=== PATIENT | female | born 1965 | race African-American/Black ===

== ENCOUNTER 2018-09-04 19:13 | Emergency (ER) | payer SELFPAY ==
[2018-09-04 19:14] VITALS: BP 158/96; PULSE 100; RESP 14; TEMP 37.3; O2SAT 96; BMI 36.8
--- NOTE | 2018-09-04 19:36 | CT_ITS ---
STUDY: CT FACIAL BONES WITHOUT CONTRAST REASON FOR EXAM: Female, 53 years old. MOVING A BED AND THE POST HIT RIGHT SIDE OF CHEEK, C/O DIZZINESS RADIATION DOSAGE (If Supplied By Facility): CTDIvol = ( 29.38 ) mGy, DLP = ( 540.11 ) mGycm TECHNIQUE: The patient was scanned in a multi detector CT scanner. Sagittal and coronal images were reconstructed. Individualized dose optimization techniques were used for this CT. COMPARISON: None. FINDINGS: Soft tissues swelling and air overlying the right maxilla. No underlying fracture. Normal orbital marrero and orbital contents. Normal nasal bones and anterior nasal spine. Normal facial bones. There is no demonstrated fracture. There is mild maxillary sinus disease. CT/Sinus/Facial Bone IMPRESSION: Soft tissues swelling and air overlying the right maxilla. No underlying fracture. Electronically Signed: Bob Severino MD at 20:29 EST , Service support ,
--- NOTE | 2018-09-04 19:36 | CT_ITS ---
STUDY: CT BRAIN WITHOUT CONTRAST REASON FOR EXAM: Female, 53 years old. MOVING A BED AND THE POST HIT RIGHT SIDE OF CHEEK, C/O DIZZINESS RADIATION DOSAGE (If Supplied By Facility): CTDIvol = ( 44.99 ) mGy, DLP = ( 779.24 ) mGycm TECHNIQUE: Transaxial CT imaging of the brain was performed without administration of intravenous contrast material. Individualized dose optimization techniques were used for this CT. COMPARISON: None. FINDINGS: Normal soft tissue structures. Normal calvarium. Normal size ventricles and extra-axial spaces for the patient's age. Normal white matter tracts of the cerebral hemispheres. Normal basal ganglia and thalami. Normal brainstem. Normal cerebellum. There is no intracranial hemorrhage. There are no findings of an acute ischemic infarction. Normal visualized paranasal sinuses. CT/Brain/Head without Contrast IMPRESSION: Normal unenhanced CT scan of the brain. Electronically Signed: Bob Severino MD at 20:22 EST , Service support ,
--- NOTE | 2018-09-04 19:36 | CT_ITS ---
STUDY: CT CERVICAL SPINE WITHOUT CONTRAST REASON FOR EXAM: Female, 53 years old. MOVING A BED AND THE POST HIT RIGHT SIDE OF CHEEK, C/O DIZZINESS RADIATION DOSAGE (If Supplied By Facility): CTDIvol = ( 24.64 ) mGy, DLP = ( 509.20 ) mGycm TECHNIQUE: High resolution transaxial imaging was performed without contrast material. Sagittal and coronal images were reconstructed. Individualized dose optimization techniques were used for this CT. COMPARISON: None FINDINGS: The vertebral bodies do maintain their height. The odontoid process is intact. There is no anterolisthesis or fracture. No pre-vertebral soft tissue swelling is seen. The intravertebral disc height is lost. There are scattered lymph nodes in the neck. There are degenerative changes of the osseous structures. There is bilateral facet arthropathy. There are scattered levels of foraminal stenosis. CT/Spine Cervical without Contras IMPRESSION: Degenerative changes of the cervical spine. No acute abnormality of the spine. Electronically Signed: Bob Severino MD at 20:30 EST , Service support ,
[2018-09-04] MEDS: Acetaminophen 500 MG Tablet 1000 MG PO (19:54)
[2018-09-04 19:57] VITALS: BP 142/85
--- NOTE | 2018-09-04 20:53 | ED.VISSUMM ---
- ER Visit Summary Date of Service: 09/04/18 Chief Complaint: Head and facial injury History of Present Illness: The patient is a 53 F who was standing on the ground when a door of a [employer] was opened. A bed frame that had shifted during transport fell out of the [employer] and hit the patient in the face. She was knocked to the ground but did not strike her head against the ground. She is complaining of pain to her right forehead and right side of her face. She has no vision changes. She has no nausea or vomiting. She denies any other injury. Physical Examination: Vital signs are unremarkable. Patient sitting upright in bed holding an ice pack on her face. Head and neck examination reveals a few abrasions to the right maxilla with focal tenderness. Periorbital bones are nontender. Pupils are equal and reactive with normal extraocular movements. She does have tenderness in the right cervical paraspinal muscles. Heart is regular rate and rhythm. Lung sounds are clear. Abdomen is soft nontender. Neuro exam is normal. Test Results: CT scan of the head is normal. CT the facial bones shows soft tissue swelling and air in the right maxilla. There is no underlying fracture. CT the C-spine shows degenerative changes. No acute abnormality. Emergency Department Course and Treatment: Patient was initially given Tylenol. After obtaining CT results she was given oxycodone for pain. Test results were discussed with the patient. Patient be given Percocet for pain. Treatment Plan: [] Disposition: Discharge Impression: 1. Closed head injury 2. Right facial contusion This note was generated with Numerous dictation software. It may contain incorrect words, spelling, and punctuation that were not noted in review of the chart prior to signing ED Disposition - Plan for ED Patient: Disposition: Home or Assisted Living Chief Complaint: Head Injury Instructions: ED Contusion Face, ED Head Injury Closed Prescriptions: Oxycodone HCl/Acetaminophen [Percocet 5/325] 1 tablet PO Q6H PRN PRN 3 Days #12 tablet PRN Reason: Pain Referrals: Edith Langford MD [STAFF PHYSICIAN] - 1-2 Weeks
[2018-09-04] MEDS: oxyCODONE 5 MG Tablet 10 MG PO (21:06)
[2018-09-04 21:11] VITALS: BP 124/71; PULSE 76; RESP 14; O2SAT 98
--- OUTSIDE RECORDS SUMMARY | 2018-12-09 07:46 | XMS RPT_ITS ---
:1965 Author Organization [facility] Care Team Providers Name Role Phone Negra Magana Attending Unavailable Primay Care Physicia, No Primary Care Unavailable PROBLEMS PROBLEMS DATE TYPE CONDITION / CODE ATTENDING STATUS SOURCE 09/04/2018 Unknown S09.93XA - Negra Magana Active [place] [facility] Community injury of face, Hospital initial encounter Repository / S09.93XA(ICD-10) PROCEDURES PROCEDURES No Procedure Records FoundRESULTS RESULTS EMERGENCY DEPARTMENT Observed: 09/05/2018 Status: F Source: [place] SUMMARY 12:06 AM [facility] Medical Records Department [address] [place] [address] Emergency Department Summary 09/04/182052 MR#: [id number] Acct: [id number] Name: KAREY MONTANEZ Rep #: [id number] : 1965 53 From: Negra Magana MD PCP: Care Physician, No Primary Status: DEP ER - ER Visit Summary Date of Service: 09/04/18 Chief Complaint: Head and facial injury History of Present Illness: The patient is a 53 F who was standing on the ground when a door of a [employer] was opened. A bed frame that had shifted during transport fell out of the [employer] and hit the patient in the face. She was knocked to the ground but did not strike her head against the ground. She is complaining of pain to her right forehead and right side of her face. She has no vision changes. She has no nausea or vomiting. She denies any other injury. Physical Examination: Vital signs are unremarkable. Patient sitting upright in bed holding an ice pack on her face. Head and neck examination reveals a few abrasions to the right maxilla with focal tenderness. Periorbital bones are nontender. Pupils are equal and reactive with normal extraocular movements. She does have tenderness in the right cervical paraspinal muscles. Heart is regular rate and rhythm. Lung sounds are clear. Abdomen is soft nontender. Neuro exam is normal. Test Results: CT scan of the head is normal. CT the facial bones shows soft tissue swelling and air in the right maxilla. There is no underlying fracture. CT the C-spine shows degenerative changes. No acute abnormality. Emergency Department Course and Treatment: Patient was initially given Tylenol. After obtaining CT results she was given oxycodone for pain. Test results were discussed with the patient. Patient be given Percocet for pain. Treatment Plan: [] Disposition: Discharge Impression: 1. Closed head injury 2. Right facial contusion This note was generated with RxResultsation software. It may contain incorrect words, spelling, and punctuation that were not noted in review of the chart prior to signing ED Disposition - Plan for ED Patient: Disposition: Home or Assisted Living Chief Complaint: Head Injury Instructions: ED Contusion Face, ED Head Injury Closed Prescriptions: Oxycodone HCl/Acetaminophen [Percocet 5/325] 1 tablet PO Q6H PRN PRN 3 Days #12 tablet PRN Reason: Pain Referrals: Edith Langford MD [STAFF PHYSICIAN] - 1-2 Weeks What to do if you have Problems For any increased pain, shortness of breath, bleeding, nausea or vomiting, chest pain, or any unexpected problems, contact your Primary Care Provider. Call [facility] ([phone]) or report to the closest Emergency Room. Call 911 if necessary. 09/05/18 0006 <Electronically signed by Negra Magana MD> Date Negra Magana MD Cosigner Signature (If Indicated): Date CC: No Primary Care Physician DISCHARGE INSTRUCTION Observed: 09/04/2018 Status: F Source: [place] 8:55 PM [facility] Medical Records Department [address] [place] [address] Discharge Instruction 09/04/182052 MR#: [id number] Acct: [id number] Name: KAREY MONTANEZ Rep #: [id number] : 1965 53 From: Negra Magana MD PCP: Care Physician, No Primary Status: REG ER ED Disposition - Plan for ED Patient: Disposition: Home or Assisted Living Chief Complaint: Head Injury Instructions: ED Contusion Face, ED Head Injury Closed Prescriptions: Oxycodone HCl/Acetaminophen [Percocet 5/325] 1 tablet PO Q6H PRN PRN 3 Days #12 tablet PRN Reason: Pain Referrals: Edith Langford MD [STAFF PHYSICIAN] - 1-2 Weeks What to do if you have Problems For any increased pain, shortness of breath, bleeding, nausea or vomiting, chest pain, or any unexpected problems, contact your Primary Care Provider. Call [facility] ([phone]) or report to the closest Emergency Room. Call 911 if necessary. 09/04/182054 <Electronically signed by Negra Magana MD> Date Negra Magana MD Cosigner Signature (If Indicated): Date CC: No Primary Care Physician BRAIN/HEAD WITHOUT Observed: 09/04/2018 Status: F Source: [place] CONTRAST 7:37 PM [facility] Imaging Services [address] [address] Brain/Head without Contrast MR#: [id number] Acct: [id number] Name: KAREY MONTANEZ Rep #: [id number] : 1965 F 53 From: Bob Severino MD PCP: Care Physician, No Primary Status: REG ER Study: Brain/Head without Contrast Date of Exam: 09/04/18 Exam# [id number] Ordering Dr: Negra Magana MD STUDY: CT BRAIN WITHOUT CONTRAST REASON FOR EXAM: Female, 53 years old. MOVING A BED AND THE POST HIT RIGHT SIDE OF CHEEK, C/O DIZZINESS RADIATION DOSAGE (If Supplied By Facility): CTDIvol = ( 44.99 ) mGy, DLP = ( 779.24 ) mGycm TECHNIQUE: Transaxial CT imaging of the brain was performed without administration of intravenous contrast material. Individualized dose optimization techniques were used for this CT. COMPARISON: None. FINDINGS: Normal soft tissue structures. Normal calvarium. Normal size ventricles and extra-axial spaces for the patient's age. Normal white matter tracts of the cerebral hemispheres. Normal basal ganglia and thalami. Normal brainstem. Normal cerebellum. There is no intracranial hemorrhage. There are no findings of an acute ischemic infarction. Normal visualized paranasal sinuses. CT/Brain/Head without Contrast IMPRESSION: Normal unenhanced CT scan of the brain. Electronically Signed: Bob Severino MD at 20:22 EST , Service support , CC: No Primary Care Physician; Negra Magana MD Product Marketing Coordinator: Signed SINUS/FACIAL BONE Observed: 09/04/2018 Status: F Source: [place] 7:37 PM [facility] Imaging Services [address] [place] [address] Sinus/Facial Bone MR#: [id number] Acct: [id number] Name: KAREY MONTANEZ Rep #: [id number] : 1965 F 53 From: Bob Severino MD PCP: Care Physician, No Primary Status: REG ER Study: Sinus/Facial Bone Date of Exam: 09/04/18 Exam# [id number] Ordering Dr: Negra Magana MD STUDY: CT FACIAL BONES WITHOUT CONTRAST REASON FOR EXAM: Female, 53 years old. MOVING A BED AND THE POST HIT RIGHT SIDE OF CHEEK, C/O DIZZINESS RADIATION DOSAGE (If Supplied By Facility): CTDIvol = ( 29.38 ) mGy, DLP = ( 540.11 ) mGycm TECHNIQUE: The patient was scanned in a multi detector CT scanner. Sagittal and coronal images were reconstructed. Individualized dose optimization techniques were used for this CT. COMPARISON: None. FINDINGS: Soft tissues swelling and air overlying the right maxilla. No underlying fracture. Normal orbital marrero and orbital contents. Normal nasal bones and anterior nasal spine. Normal facial bones. There is no demonstrated fracture. There is mild maxillary sinus disease. CT/Sinus/Facial Bone IMPRESSION: Soft tissues swelling and air overlying the right maxilla. No underlying fracture. Electronically Signed: Bob Severino MD at 20:29 EST , Service support , CC: No Primary Care Physician; Negra Magana MD Product Marketing Coordinator: Signed SPINE CERVICAL Observed: 09/04/2018 Status: F Source: [place] WITHOUT CONTRAS 7:37 PM [facility] Imaging Services [address] [place] [address] Spine Cervical without Contras MR#: [id number] Acct: [id number] Name: KAREY MONTANEZ Rep #: [id number] : 1965 F 53 From: Bob Severino MD PCP: Care Physician, No Primary Status: REG ER Study: Spine Cervical without Contras Date of Exam: 09/04/18 Exam# [id number] Ordering Dr: Negra Magana MD STUDY: CT CERVICAL SPINE WITHOUT CONTRAST REASON FOR EXAM: Female, 53 years old. MOVING A BED AND THE POST HIT RIGHT SIDE OF CHEEK, C/O DIZZINESS RADIATION DOSAGE (If Supplied By Facility): CTDIvol = ( 24.64 ) mGy, DLP = ( 509.20 ) mGycm TECHNIQUE: High resolution transaxial imaging was performed without contrast material. Sagittal and coronal images were reconstructed. Individualized dose optimization techniques were used for this CT. COMPARISON: None FINDINGS: The vertebral bodies do maintain their height. The odontoid process is intact. There is no anterolisthesis or fracture. No pre-vertebral soft tissue swelling is seen. The intravertebral disc height is lost. There are scattered lymph nodes in the neck. There are degenerative changes of the osseous structures. There is bilateral facet arthropathy. There are scattered levels of foraminal stenosis. CT/Spine Cervical without Contras IMPRESSION: Degenerative changes of the cervical spine. No acute abnormality of the spine. Electronically Signed: Bob Severino MD at 20:30 EST , Service support , CC: No Primary Care Physician; Negra Magana MD Product Marketing Coordinator: Signed ALLERGIES ALLERGIES DATE TYPE / CODE NAME / CODE REACTION SEVERITY SOURCE 09/04/2018 Drug No Known Unknown [facility] Allergy/4160 Allergies/F00 [facility] [address](SNOMED [id number](RXNOR Repository CT) M) ENCOUNTERS ENCOUNTERS ADMIT/DISCHARGE ACCOUNT ADMITTING ENCOUNTER LOCATION SOURCE NUMBER CLASS 09/04/2018/12/14/ [id number] Emergency [place] [facility] ing:ED Repository PAYERS PAYERS ENCOUNTER GUARANTOR PAYER SUBSCRIBER SOURCE 09/04/2018 KAREY L Primary NOT GIVENUNK [place] Insurance:SELF PAY [facility] [id number]: (419) Number: Effective Repository [phone] () Date:2018-09-04
== END 2018-09-04 21:11 | disposition home or self-care (01) ==
PROVIDERS: Emergency Provider Emergency Medicine
DX: S00.83XA Contusion of other part of head, initial encounter (principal); S00.81XA Abrasion of other part of head, initial encounter; M54.2 Cervicalgia; W22.8XXA Striking against or struck by other objects, initial encounter; Y93.9 Activity, unspecified; Y92.9 Unspecified place or not applicable
CPT/HCPCS: 70450; 70486; 72125; 99283

== ENCOUNTER 2018-11-10 13:05 | Emergency (ER) | payer SELFPAY ==
[2018-11-10 13:05] VITALS: BP 150/98; PULSE 86; RESP 16; TEMP 36.6; O2SAT 98; BMI 37.0
[2018-11-10] MEDS: Metoclopramide 10 MG/2 ML Vial IV (14:21)
[2018-11-10] MEDS: 0.9% Normal Saline 1,000 ML 999 ML IV (14:21)
[2018-11-10] MEDS: DiphenhydrAMINE 50 MG/ML Syringe 25 MG IV (14:21)
[2018-11-10] MEDS: Ketorolac 30 MG/ML Syringe 15 MG IV (14:21)
--- NOTE | 2018-11-10 15:40 | ED.DCSUM_ITS ---
- ER Visit Summary Date of Service: 11/10/18 Chief Complaint: Headache History of Present Illness: The patient is a 53 F who presents for headache for 1-1/2 months, worsening recently. Patient was struck in the right side of the head by a bedpost that fell out of a [employer] truck 1-1/2 months ago. She was e valuated at that time. Since then she has had continuous right-sided headache, right-sided cheek twitching and stinging/burning, and photophobia in the right eye. Patient also in the last few days is noted swelling and pain at the right mandibular first molar due to a tooth that was knocked loose during the incident. Patient has been taking Tylenol without any relief. She denies any nausea, fever, blurred or double vision, weakness or paresthesias in the arms or legs or any other complaints. Physical Examination: Vital signs: afebrile, hemodynamically stable, no hypoxia on room air General: well nourished, well developed, in no distress able to tolerate the lights on Skin: warm, dry, no rash, no pallor no vesicular rash noted to the right face HEENT: normocephalic and atraumatic; to palpation of the right forehead and cheek, pain with light touch to this area, PERRL, EOMI, moist mucous membranes, right first mandibular molar is loose, lingual gingiva at this tooth has mild fluctuant swelling, remainder of oropharyngeal exam unremarkable Cardiovascular: regular rate and rhythm without murmurs, no peripheral edema, 2+ pulses all distal extremities Respiratory: No increased work of breathing, lungs are clear to auscultation bilaterally, no rales, rhonchi or wheezing Abdominal: Abdomen is soft, nontender with normoactive bowel sounds, no guarding or rebound, no masses MSK: Moves all extremities, no deformities, normal strength Neuro: Awake and alert, oriented ?4. No facial droop, sensation and motor function intact and symmetric Test Results: [] Emergency Department Course and Treatment: Patient was given a migraine cocktail of fluids, Toradol, Reglan and Benadryl for her headache. She had great improvement in the discomfort with the treatment. The dental abscess was aspirated with a 22-gauge needle, with expression of a small amount of thin pus. Patient was started on penicillin for treatment of dental abscess. She was given a list of local dental clinics. Patient was given referral to neurology due to the ongoing symptoms after her head injury. Patient was discharged neurologically intact, feeling much better, and well-appearing. Treatment Plan: [] Disposition: [] Impression: Concussive syndrome, right mandibular dental abscess This note was generated with Breezy dictation software. It may contain incorrect words, spelling, and punctuation that were not noted in review of the chart prior to signing ED Disposition - Plan for ED Patient: Disposition: Home or Assisted Living Instructions: ED Concussion, ED Abscess Dental Prescriptions: Penicillin V Potassium 500 mg PO 4X/DAY #28 tab Referrals: Care Physician,No Primary [Primary Care Provider] - Luis Pratt MD [STAFF PHYSICIAN] - As soon as possible Additional Instructions: Take the antibiotic for the full 7 days for treatment of your dental abscess. Please follow-up with 1 of the dentist on the dental clinic list you were given. Follow-up with neurology to discuss your continued right-sided headache and facial pain/twitching that started after your head injury. If you have any worsening of your condition or any new concerning symptoms, please return immediately to the emergency department for another evaluation.
[2018-11-10 15:53] VITALS: BP 121/72; PULSE 62; RESP 16; O2SAT 99
== END 2018-11-10 15:55 | disposition home or self-care (01) ==
PROVIDERS: Emergency Provider Emergency Medicine
DX: K04.7 Periapical abscess without sinus (principal); F07.81 Postconcussional syndrome
CPT/HCPCS: 41800; 96361; 96374; 96375; 99283; J7030